=== PATIENT | male | born 1975 | race Caucasian/White ===

== ENCOUNTER 2016-05-21 19:29 | Emergency (ER) | payer OTHER ==
[~2016-05-21] VITALS: Ht 172.7 cm; Wt 86.2 kg
[2016-05-21 19:51] VITALS: BP 148/87
[2016-05-21 20:15] LABS: OBC FLU VALID
[2016-05-21] MEDS ORDERED: AMOX500C PO (20:20)
--- NOTE | 2016-05-21 20:21 | PHYS DOC ---
Past Medical History Past Medical History: Other Additional Past Medical Histor: LUNG CA Past Surgical History: Appendectomy, Other Additional Past Surgical Histo: BILAT HAND, BACK Alcohol Use: Rarely Drug Use: None Adult General Chief Complaint Chief Complaint: SORE THROAT HPI HPI Patient is a 40 year old female presents to the emergency department stating that he has been having sinus pressure with ear pain and discomfort and a sore throat since Saturday. He also states his been running a fever although has not taken his temperature as he does not have a thermometer. His been taken Aleve without relief. He denies any cough the current time. Denies any nausea vomiting. Review of Systems Review of Systems Constitutional: hx fever Eyes: Denies change in visual acuity, redness, or eye pain [] HENT: nasal congestion and sore throat, bilateral ear pain and discomfort Respiratory: Denies cough or shortness of breath [] Cardiovascular: No additional information not addressed in HPI [] GI: Denies abdominal pain, nausea, vomiting, bloody stools or diarrhea [] : Denies dysuria or hematuria [] Musculoskeletal: Denies back pain or joint pain [] Integument: Denies rash or skin lesions [] Neurologic: Denies headache, focal weakness or sensory changes [] Allergies Allergies Allergies Coded Allergies Type Severity Reaction Last Updated Verified No Known Drug Allergies 05/21/16 No Physical Exam Physical Exam Constitutional: Well developed, well nourished, no acute distress, non-toxic appearance. [] HENT: Normocephalic, atraumatic, bilateral external ears normal, oropharynx moist, no oral exudates, nose normal. Lateral tympanic membranes appear to be normal however he does appear to have some bulging. Patient was noted to have maxillary sinus tenderness. Throat with postnasal drip erythematous noted no exudate noted patient with cervical adenopathy anteriorly on the right. Eyes: PERRLA, EOMI, conjunctiva normal, no discharge. [] Neck: Normal range of motion, no tenderness, supple, no stridor. [] Cardiovascular:Heart rate regular rhythm, no murmur [] Lungs & Thorax: Bilateral breath sounds clear to auscultation [] Skin: Warm, dry, no erythema, no rash. [] Back: No tenderness Extremities: No tenderness, no cyanosis, no clubbing, ROM intact, no edema. [] Neurologic: Alert and oriented X 3, normal motor function, normal sensory function, no focal deficits noted. [] Psychologic: Affect normal, judgement normal, mood normal. [] Current Patient Data Vital Signs Vital Signs Date Time Temp Pulse Resp B/P Pulse Ox O2 Delivery O2 Flow Rate FiO2 05/21/16 19:51 98.3 96 18 98 Room Air 98.3 Lab Values Laboratory Tests Test 05/21/16 19:45 Influenza Type A Antigen Negative (NEGATIVE) Influenza Type B Antigen Negative (NEGATIVE) EKG EKG [] Radiology/Procedures Radiology/Procedures [] Course & Med Decision Making Course & Med Decision Making Pertinent Labs and Imaging studies reviewed. (See chart for details) Influenza swabs were negative. Patient will be placed on Augmentin 1 tablet twice a day. Recommended Sudafed [id number] instructed by configuration release manager's as well as Mucinex DM. Patient was provided with signs and symptoms to return back to emergency department. A shunt agrees with discharge instructions treatment regimens and follow-up recommendations. [] Dragon Disclaimer Dragon Disclaimer This electronic medical record was generated, in whole or in part, using a voice recognition dictation system. Departure Departure Impression: Primary Impression: Sinusitis Disposition: HOME, SELF-CARE Condition: STABLE Referrals: KAYCEE ABBOTT (PCP) Patient Instructions: Sinusitis, [id number] Additional Instructions: Home to rest Tylenol or Ibuprofen for fever, chills or generalized body aches Medication as prescribed Sudafed as directed by manufacture Mucinex DM as directed by manufacture Drink plenty of fluids Followup with primary care provider in 5-7 days Return to emergency department as needed for signs and symptoms that become worse. Scripts Amoxicillin 500 Mg Capsule1 Cap PO BID #20 CAP Prov:MAICOL KRISHNA FORESTRY SCIENTIST 05/21/16 MAICOL KRISHNA FORESTRY SCIENTIST May 21, 2016 20:21
== END 2016-05-21 20:24 | disposition home or self-care (01) ==
LOC: ER 19:29
DX: J32.9 Chronic sinusitis, unspecified (principal)
CPT/HCPCS: 87804; 99284